=== PATIENT | female | born 1975 | race Caucasian/White ===

== ENCOUNTER 2022-01-10 15:48 | Emergency (ER) | payer SELFPAY ==
[~2022-01-10] VITALS: Ht 167.6 cm; Wt 84.1 kg
[~2022-01-10 15:48] MED LIST: NO HOME MEDS
[2022-01-10 15:55] VITALS: BP 163/78
[2022-01-10] MEDS ORDERED: proparacaine 0.5% ophthalmic drops 15ml EACHEYE ONE (17:55)
[2022-01-10] MEDS ORDERED: fluorescein sod 1mg ophthalmic strip RIGHTEYE ONE (17:55)
[2022-01-10] MEDS ORDERED: POLOS EACHEYE ×3 (19:32→19:37)
== END 2022-01-10 19:58 | disposition home or self-care (01) ==
LOC: ER 15:49
DX: H53.8 Other visual disturbances (principal); H02.843 Edema of right eye, unspecified eyelid; J45.909 Unspecified asthma, uncomplicated; M19.90 Unspecified osteoarthritis, unspecified site; Z88.5 Allergy status to narcotic agent
CPT/HCPCS: 99283; J7050

== ENCOUNTER 2022-09-13 17:45 | Emergency (ER) | payer MEDICAID ==
[~2022-09-13] VITALS: Ht 165.1 cm; Wt 90.9 kg
[~2022-09-13 17:45] MED LIST changes: +POLOS EACHEYE
[2022-09-13 17:48] VITALS: BP 124/75
[2022-09-13] MEDS ORDERED: HYDROcodone/acetaminophen 10/325mg tab PO ONE (18:05)
== END 2022-09-13 19:24 | disposition home or self-care (01) ==
LOC: ER 17:46
DX: S69.91XA Unspecified injury of right wrist, hand and finger(s), initial encounter (principal); S09.93XA Unspecified injury of face, initial encounter; M19.90 Unspecified osteoarthritis, unspecified site; J45.909 Unspecified asthma, uncomplicated; Z72.89 Other problems related to lifestyle; Z88.8 Allergy status to other drugs, medicaments and biological substances; Y04.8XXA Assault by other bodily force, initial encounter; Y93.89 Activity, other specified; Y92.511 Restaurant or cafe as the place of occurrence of the external cause; Y99.8 Other external cause status
CPT/HCPCS: 70450; 70486; 73110; 99284

== ENCOUNTER 2025-06-04 09:46 | Emergency (ER) | payer MEDICAID, OTHER ==
[~2025-06-04] VITALS: Ht 165.1 cm; Wt 81.1 kg
[2025-06-04 09:57] VITALS: BP 121/84; PULSE 78; RESP 18; O2SAT 98
--- NOTE | 2025-06-04 11:59 | Physician Documentation ---
History of Present Illness ~ Chief Complaint: Sore Throat Stated Complaint: STREP THROAT Time Seen by MD: 11:21 OK to notify your PCP?: Yes Primary Medical Doctor: LEONIDAS LARKIN Source: patient Mode of Arrival: POV Exam Limitations: no limitations HPI This is a 49 year old female comes in complaining of sore throat that has had for the past couple of days. The patient points to the midline lower throat as area of pain. She states her voice that has raspy. She says it hurts to swallow. She denies inability to tolerate her own secretions, food or fluid. She has had subjective. Medication Reconciliation Allergies: Coded Allergies: Penicillins (Verified Allergy, Unknown, 06/04/25) codeine (Verified Allergy, Unknown, 06/04/25) Scheduled Polymyxin B Sulfate/Tmp Opth* (Polytrim Ophthalmic Drops*), 1 DRP EACHEYE Q3H Miscellaneous Medications Home Med List (No Home Medications), (Reported) Past Medical History Past Medical History: Seizures, Angina, Asthma, Arthritis, Anxiety, Depression Past Surgical History: orthopedic surgeries Alcohol Use: Heavy Drug Use: none Lives with: Other Lives In: Home Occupation: employed Physical Exam Vital Signs: Temperature: 97.4, Source: Temporal, Heart Rate: 78, Respiratory Rate: 18, BP: 121/84, Pulse Oximetry: 98, Weight: 81.100 Oxygen Flow Rate: 0 Pulse Oximetry Reflects: adequate oxygenation General Appearance: alert, WD/WN, no apparent distress Mouth/Throat Negative for trismus or muffled voice with the patient does have a scratchy quality to her voice. The patient tolerated his own secretions well. To inspection of the oropharynx no erythema edema or exudates. No unilateral pharyngeal fullness, uvula shift or kissing tonsils. Petechiae of the soft palate. No cervical lymphadenopathy. Progress Results/Orders Results/Orders Vital Signs 06/04/25 09:57 Temp 97.4 Pulse 78 Resp 18 B/P (MAP) 121/84 Pulse Ox 98 O2 Flow Rate 0 Medical Decision Making Additional information obtaine: N/A Findings The patient's physical examination does not appear consistent with pharyngitis or bacterial infection. She has a scratchy voice and symptoms are more consistent with a laryngitis. The patient does vape. I told her to stop vaping for now and offered a course of some prednisone however the patient states she has some at home that she will take. I told her to use [id number] sore throat sprays and lozenges for symptomatic relief and to perform warm saltwater gargles. Follow up with the primary care physician for recheck in the next one or two days and return to the ER for any worsening or concerning symptoms Ear Diff. Dx: Considerations: Include: Abrasion, Cerumen impaction, Foreign body, Otitis externa, Barotrauma, Otitis media, Perforation, Referred pain- dental, Referred pain-pharyngitis, Referred pain-sinusitis, Referred pain-TMJ syn., Tympanic Membrane Injury, Other Eye Diff. Dx: Considerations: Include: Chalazoin, Conjuctivits-allergic, Conjuctivitis-bacterial, Conjuctivits-chlamydial, Conjuctivitis-viral, Corneal abrasion, Corneal laceration, Corneal ulceration, Foreign body-conjuctiva, Foreign body-corneal, Foreign body-intraocular, Foreign body-lid, Glaucoma, Globe rupture, Hordeolum, Iritis, Orbital cellulitis, Periobital cellulitis, Retinal artery occulsion, Retinal vein occlusion, Rust ring, Subconjunctival hem, Ultraviolet keratitis, Uveitis, Vitreous hemorrhage, Other Nose Diff. Dx: Considerations: Include: Abrasion, Anterior nasal bleed, Avulsion, Contusion, Coagulopathy, Fracture-nasal bone, Fracture-septum, Hypertension, Laceration, Other, Posterior nasal bleed, Retained foreign body, Septal hematoma Tooth Diff. Dx: Considerations: Include: Alveolar fracture, Aveolar osteitis, ANUG, Facial cellulitis, Periapical abscess, Periodontal abscess, Post- extraction bleeding, Pulpitis, Trigeminal neuralgia, Tooth-avulsion, Tooth- eruption, Tooth-fracture, Tooth-subluxation, Other Throat Diff Dx: Considerations: Include: AIDS, Epiglottitis, Esophageal candidiasis, Hand foot mouth disease, Herpangina, Herpetic stomatitis, Herpes simplex, Infection mononucleosis, Immunodeficiency, José Miguel's angina, Peritonsillar abscess, Peritonsillar cellulitis, Pharyngitis-diphtheria, Pharyngitis-strepococcal, Pharyngitis-viral, Thrush, URI, Other Additional Comment Laryngitis. Pharyngitis. Viral syndrome. Strep throat. Tonsillitis. Departure Disposition: 01 HOME / SELF CARE / HOMELESS Impression: Primary Impression: Laryngitis Condition: Stable Discharge Instructions: Laryngitis Additional Instructions: That has taking the prednisone in his she has a home for five days. Purchase this [id number] sore throat sprays and lozenges for sore throat relief. Follow up with the your primary care physician for recheck in the next one or two days and return to the ER for any worsening or concerning symptoms Referrals: NO PRIMARY CARE PROVIDER (PCP) Signature Scribe Signature: No scribe Attestation: The note accurately reflects work and decisions made by me.Betsy COHEN 06/04/25 11:58 BETSY NOGUEIRA Jun 04, 2025 11:59
[2025-06-04 12:03] VITALS: TEMP 97.4
[2025-06-20] MEDS ORDERED: METF-900 PO (01:08)
[2025-06-20] MEDS ORDERED: HYDR25TA5 PO (01:09)
[2025-06-20] MEDS ORDERED: ATOR20TA PO (01:09)
[2025-06-20] MEDS ORDERED: OMEP40CA21 PO (01:10)
[2025-06-20] MEDS ORDERED: MECL-302 PO (01:11)
[2025-06-20] MEDS ORDERED: DULO60CA65 PO (01:12)
[2025-06-20] MEDS ORDERED: CELE-193 PO (01:13)
== END 2025-06-04 12:04 | disposition home or self-care (01) ==
LOC: ER 09:47
DX: J04.0 Acute laryngitis (principal); M19.90 Unspecified osteoarthritis, unspecified site; F41.9 Anxiety disorder, unspecified; F32.A Depression, unspecified; Z88.0 Allergy status to penicillin; Z88.5 Allergy status to narcotic agent; Z79.899 Other long term (current) drug therapy; Z98.890 Other specified postprocedural states
CPT/HCPCS: 99282